=== PATIENT | female | born 1995 | race American Indian/Alaskan Native ===

== ENCOUNTER 2018-09-18 18:09 | Emergency (ER) | payer OTHER ==
[2018-09-18 18:16] VITALS: BMI 22.1
[2018-09-18 18:19] VITALS: TEMP 98.4
--- NOTE | 2018-09-18 19:11 | C.PDOC ---
History Of Present Illness 23 year old female presents to the ED complaining of pain to the bottom of her left foot for 1 week. Pain worsens when walking and standing. Patient admits she is currently training for the [employer] and has been running and standing on her feet a lot. She denies any known trauma or fall. Also denies any sensory changes or open wounds. Time Seen by Provider: 09/18/18 18:25 Chief Complaint (Nursing): Lower Extremity Problem/Injury History Per: Patient History/Exam Limitations: no limitations Onset/Duration Of Symptoms: Days Current Symptoms Are (Timing): Still Present Past Medical History Reviewed: Historical Data, Nursing Documentation, Vital Signs Vital Signs: Last Vital Signs Temp 98.4 F 09/18/18 18:16 Pulse 60 09/18/18 18:16 Resp 18 09/18/18 18:16 BP 106/61 09/18/18 18:16 Pulse Ox 98 09/18/18 18:16 - Medical History PMH: No Chronic Diseases Surgical History: No Surg Hx Family History: States: No Known Family Hx - Social History Hx Alcohol Use: No Hx Substance Use: No - Immunization History Hx Tetanus Toxoid Vaccination: No Hx Influenza Vaccination: No Review Of Systems Constitutional: Negative for: Fever, Chills Musculoskeletal: Positive for: Foot Pain Skin: Negative for: Rash, Lesions Neurological: Negative for: Weakness, Numbness Physical Exam - Physical Exam Appears: Non-toxic, No Acute Distress Skin: Warm, Dry, No Rash Head: Atraumatic, Normacephalic Eye(s): bilateral: Normal Inspection Neck: Normal ROM Chest: Symmetrical Respiratory: No Accessory Muscle Use, Other (Speaking in full sentences) Extremity: Normal ROM (w/ full ROM of left foot and ankle), Tenderness (to the medial plantar surface of left foot), Capillary Refill (< 2 sec), No Swelling, Other (No skin changes) Pulses: Left Dorsalis Pedis: Normal, Right Dorsalis Pedis: Normal Neurological/Psych: Oriented x3, Normal Speech ED Course And Treatment O2 Sat by Pulse Oximetry: 98 (on room air) Pulse Ox Interpretation: Normal Medical Decision Making Medical Decision Making: Impression: Left foot pain Based on history and exam, discussed likely diagnosis of plantar fasciitis vs foot strain with patient. No clinical concern for fracture. Patient is requesting x-ray. X-ray of left foot ordered and reviewed. Imaging is negative for acute fracture or dislocation. Information given regarding preliminary nature of x-ray reading, with possibility that a fracture not initially detected in the ED may be found on final reading, with subsequent notification. On re-examination, patient is resting comfortably in no acute distress. Patient feels comfortable going home and will be discharged. Instructed to take nsaids as needed for pain, and to return to ER if symptoms worsen or new symptoms arise. Disposition Counseled Patient/Family Regarding: Studies Performed, Diagnosis, Need For Followup, Rx Given - Disposition Referrals: Mora Gaspar DPM [Staff Provider] - Disposition: HOME/ ROUTINE Disposition Time: 19:32 Condition: STABLE Additional Instructions: Your x-ray was normal, no fracture. Please apply ice to area 15 minutes three times a day. Take Motrin as needed for pain every 6 hours, with food to not upset stomach. Follow up with orthopedic if pain persists over one week. Prescriptions: Ibuprofen [Motrin] 600 mg PO Q8 #30 tab Instructions: Heel Pain (Caused by Plantar Fasciitis) (DC) Forms: [employer] (Maori) - POA Present On Arrival: None - Clinical Impression Clinical Impression: Plantar fasciitis of left foot - PA / [employer] / Resident Statement MD/DO has reviewed & agrees with the documentation as recorded. - Scribe Statement The provider has reviewed the documentation as recorded by the Scribbri Berg All medical record entries made by the Judsonibbri were at my direction and personally dictated by me. I have reviewed the chart and agree that the record accurately reflects my personal performance of the history, physical exam, medical decision making, and the department course for this patient. I have also personally directed, reviewed, and agree with the discharge instructions and disposition.
[2018-09-18 19:46] VITALS: BP 110/70; PULSE 70; RESP 14; O2SAT 99
--- NOTE | 2018-09-19 17:53 | RAD ---
Date of service: 09/18/2018 PROCEDURE: Left Foot Radiographs. HISTORY: pain to foot COMPARISON: None. TECHNIQUE: 3 views obtained. FINDINGS: BONES: Normal. No fracture. JOINTS: Normal. SOFT TISSUES: Normal. OTHER FINDINGS: None. IMPRESSION: Normal left foot radiographs.
== END 2018-09-18 19:46 | disposition home or self-care (01) ==
LOC: C.ER 18:09
DX: M72.2 Plantar fascial fibromatosis (principal)